=== PATIENT | female | born 1960 | race African-American/Black ===

== ENCOUNTER → 2018-11-11 | Outpatient (CLI) | payer BC ==
[~2018-11-11] MED LIST: CHERACOL COUGH120 ML PO; DIABETA 1.25M1.25 M1; FLONASE 0.05%50 MCG NASAL; GLUCOPHAGE XR500 MG; LANTUS; LO-DOSE ASPIRIN81 M1 PO; PROVENTIL HFA6.7 G1 INH; SIMVASTATIN5 MG
[2018-11-11 08:11] LABS: CALCIUM 9.1 mg/dL (8.5-10.1); CREATININE 0.6 mg/dL (0.6-1.0); POTASSIUM 3.6 mmol/L (3.5-5.1)
--- NOTE | 2018-11-11 08:54 | EKG ---
[place] [address] [facility] [place] [address] ELECTROCARDIOGRAM REPORT Name: TOO ALFONSO [facility] [id number] ������������������ Admission: 11/11/18 ������������������ Attend Phys: Saw Sheppard MD Discharge: ������������������ Date of : 62 Report #: [id number] ����������������������������������������������������������������� [id number] THIS REPORT FOR: //name// [facility] Test Date: 2018-11-11 Test Time: 08:16:00 Pat Name: TOO ALFONSO Department: Room: Gender: F Patient Transport Orderly: : 1960 Requested By: Saw Sheppard Order Number: [id number] MD: Romero Holloway Measurements Intervals [place] Rate: 93 P: 59 WA: 145 QRS: 35 QRSD: 98 T: 20 QT: 377 QTc: 469 Interpretive Statements Sinus rhythm Multiple ventricular premature complexes Probable left atrial enlargement No previous ECG available for comparison Electronically Signed On 11-11-2018 8:54:07 CDT by Romero Holloway [email or web address] ��������������������������������������������� <ELECTRONICALLY SIGNED> ���������������������������������������� By: Romero Holloway MD ��������������������������������������������� 11/11/18 0854 0816 0816 Romero Holloway MD /EPI
== END ==
LOC: CV 07:23
PROVIDERS: Internal Medicine Gastroenterology
DX: Z01.818 Encounter for other preprocedural examination (principal)